=== PATIENT | male | born 2000 | race Caucasian/White ===

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

== ENCOUNTER 2021-09-20 18:24 | Emergency (ER) | payer OTHER, BC ==
[~2021-09-20] VITALS: Ht 180.3 cm; Wt 61.2 kg
[2021-09-20 18:31] VITALS: BP_SYST 126
--- NOTE | 2021-09-20 19:30 | NUR ---
Patient left without being seen. No further treatment provided. ER MD aware
== END 2021-09-20 19:30 | disposition left against medical advice (07) ==
LOC: SED 18:24
DX: M54.50 Low back pain, unspecified (principal); V49.60XA Unspecified car occupant injured in collision with unspecified motor vehicles in traffic accident, initial encounter; Y93.89 Activity, other specified; Y92.89 Other specified places as the place of occurrence of the external cause; Y99.8 Other external cause status; Z53.21 Procedure and treatment not carried out due to patient leaving prior to being seen by health care provider

== ENCOUNTER 2021-09-22 17:36 | Emergency (ER) | payer OTHER, BC ==
[~2021-09-22] VITALS: Ht 180.3 cm; Wt 61.2 kg
[2021-09-22 17:44] VITALS: BP_SYST 110
--- NOTE | 2021-09-22 17:53 | NUR ---
pt. triaged sent to WR to wait
--- NOTE | 2021-09-22 18:28 | NUR ---
Patient to ER bed 2 for evaluation. Side rails up. Report given to Marisol.
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
--- NOTE | 2021-09-22 19:14 | NUR ---
report given to aaliyah jameson. all cares transferred at this time.
[2021-09-22 19:55] VITALS: BP_SYST 108
[2021-09-22] MEDS ORDERED: KETOROLAC TROMETHAMINE 30 MG VIAL IM ONE (20:00)
--- NOTE | 2021-09-22 20:01 | NUR ---
Patient given written and verbal discharge instructions and verbalizes understanding. ER MD discussed with patient the results and treatment provided. Patient in stable condition. ID arm band removed. Patient educated on pain management and to follow up with PMD. Opportunity for questions provided and answered.
== END 2021-09-22 20:00 | disposition home or self-care (01) ==
LOC: SED 17:36
DX: S30.0XXA Contusion of lower back and pelvis, initial encounter (principal); S10.93XA Contusion of unspecified part of neck, initial encounter; V49.59XA Passenger injured in collision with other motor vehicles in traffic accident, initial encounter; Y93.89 Activity, other specified; Y92.89 Other specified places as the place of occurrence of the external cause; Y99.8 Other external cause status
CPT/HCPCS: 72040; 72100; 96372; 99284; J1885

== ENCOUNTER 2021-12-31 13:52 | Emergency (ER) | payer BC ==
[~2021-12-31] VITALS: Ht 177.8 cm; Wt 59.0 kg
[2021-12-31 14:10] VITALS: BP_SYST 120
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
[2021-12-31 14:45] VITALS: BP_SYST 120
[2021-12-31] MEDS ORDERED: SILVER SULFADIAZINE 1%, 25 GM TOPICAL CREAM (SSD) TP ONE (14:45)
[2021-12-31] MEDS ORDERED: DIPHTH,PERTUSS(ACELL),TET VAC 0.5 ML VIAL (Tdap) I.M. ONE (14:45)
--- NOTE | 2021-12-31 14:45 | NUR ---
Note jadone in EDM - 12/31/21 at 1931 by [email or web address] Patient given written and verbal discharge instructions and verbalizes understanding. ER discussed with patient the results and treatment provided. Patient in stable condition. ID arm band removed. Rx of Cephalexin. Naproxen given. Patient educated on pain management and to follow up with PMD. Pain Scale 0/10 . Opportunity for questions provided and answered. Medication side effect fact sheet provided.
--- NOTE | 2021-12-31 14:45 | NUR ---
Patient given written and verbal discharge instructions and verbalizes understanding. ER MD discussed with patient the results and treatment provided. Patient in stable condition. ID arm band removed. Rx of Cephalexin. Naproxen given. Patient educated on pain management and to follow up with PMD. Pain Scale 0/10 . Opportunity for questions provided and answered. Medication side effect fact sheet provided.
[2021-12-31] MEDS ORDERED: CEPH-548 PO (14:58)
[2021-12-31] MEDS ORDERED: NAPR-1172 PO (14:58)
--- NOTE | 2021-12-31 19:10 | NUR ---
MSE BY DR LIMON AT 1444 PER MD NOTE
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
== END 2021-12-31 14:45 | disposition home or self-care (01) ==
LOC: SED 13:52
DX: T22.241A Burn of second degree of right axilla, initial encounter (principal); T31.0 Burns involving less than 10% of body surface; F12.90 Cannabis use, unspecified, uncomplicated; Z79.899 Other long term (current) drug therapy
CPT/HCPCS: 90715; 99283

== ENCOUNTER 2022-02-09 02:29 | Emergency (ER) | payer OTHER, BC ==
[~2022-02-09] VITALS: Ht 177.8 cm; Wt 61.2 kg
[~2022-02-09 02:29] MED LIST: CEPH-548 PO; NAPR-1172 PO
[2022-02-09 02:35] VITALS: BP_SYST 122
--- NOTE | 2022-02-09 02:35 | NUR ---
Patient triaged and placed in waiting room. VSS and patient appears in no acute distress at this time. Accompanied by fam member, awaiting available bed, and MD notified of need for MSE.
--- NOTE | 2022-02-09 02:41 | NUR ---
ER examining patient in the waiting room.
[2022-02-09] MEDS ORDERED: KETOROLAC TROMETHAMINE 30 MG VIAL IM ONE (02:45)
--- NOTE | 2022-02-09 03:19 | NUR ---
Patient to ER bed OLIVARES to gown for evaluation. Side rails up.
[2022-02-09] MEDS ORDERED: METH-634 PO (03:27)
[2022-02-09] MEDS ORDERED: IBUP-1969 PO (03:27)
--- NOTE | 2022-02-09 03:38 | NUR ---
pt states pain better.
--- NOTE | 2022-02-09 03:39 | NUR ---
Patient given written and verbal discharge instructions and verbalizes understanding. ER MD discussed with patient the results and treatment provided. Patient in stable condition. ID arm band removed. Rx of Robaxin and Ibuprofen given. Patient educated on pain management and to follow up with PMD. Pain Scale 4/10. Opportunity for questions provided and answered. Medication side effect fact sheet provided.
[2022-02-09 03:40] VITALS: BP_SYST 120
== END 2022-02-09 03:40 | disposition home or self-care (01) ==
LOC: SED 02:29
DX: S39.012A Strain of muscle, fascia and tendon of lower back, initial encounter (principal); Z79.899 Other long term (current) drug therapy; V49.40XA Driver injured in collision with unspecified motor vehicles in traffic accident, initial encounter; Y93.89 Activity, other specified; Y92.89 Other specified places as the place of occurrence of the external cause; Y99.8 Other external cause status
CPT/HCPCS: 99283; 72100; 96372; J1885

== ENCOUNTER 2023-06-24 17:43 | Emergency (ER) | payer BC, OTHER ==
[~2023-06-24] VITALS: Ht 177.8 cm; Wt 61.2 kg
[~2023-06-24 17:43] MED LIST changes: +IBUP-1969 PO; +IBUP-1971 PO; +METH-634 PO; +SOM350 PO
[2023-06-24 17:54] VITALS: BP_SYST 127; PULSE 53; RESP 18; TEMP 97.8; O2SAT 99
[2023-06-24 19:52] LABS: BILIRUBIN,URINE NEGATIVE (NEGATIVE); BLOOD, URINE NEGATIVE (NEGATIVE); COLOR,URINE YELLOW (YELLOW); GLUCOSE,URINE NEGATIVE (NEGATIVE); KETONES,URINE NEGATIVE (NEGATIVE); LEUKOCYTE ESTERASE ,URINE NEGATIVE (NEGATIVE); NITRITE, URINE NEGATIVE (NEGATIVE); PH,URINE 7.5 (5.0-8.0); PROTEIN URINE NEGATIVE (NEGATIVE); UROBILINOGEN,URINE 0.2 (0.2-1.0)
[2023-06-24 20:03] LABS: CLARITY/URINE HAZY (CLEAR)
[2023-06-24] MEDS: KETOROLAC TROMETHAMINE 30 MG VIAL IM ONE (20:14)
[2023-06-24] MEDS ORDERED: NAPR-690 PO (21:07)
[2023-06-24 21:15] VITALS: BP_SYST 116; PULSE 60; RESP 16; TEMP 98; O2SAT 99
== END 2023-06-24 21:15 | disposition home or self-care (01) ==
LOC: SED 17:43
DX: N50.811 Right testicular pain (principal); Z79.899 Other long term (current) drug therapy
CPT/HCPCS: 99285; 81001; 36415; 76870; 96372; 87491; 81003; J1885